=== PATIENT | female | born 1965 | race Caucasian/White ===

== ENCOUNTER → 2017-10-16 | Outpatient (CLI) | payer BC | END | disposition home or self-care (01) | LOC: C.PAPS 09:00 | PROVIDERS: ATTEND Physician Assistant | DX: Z01.419 Encounter for gynecological examination (general) (routine) without abnormal findings (principal) ==

== ENCOUNTER → 2017-11-27 | Outpatient (CLI) | payer OTHER ==
--- NOTE | 2017-11-28 15:38 | MAMMOGRAPHY REPORT ---
BILATERAL DIGITAL SCREENING MAMMOGRAM TOMOSYNTHESIS WITH CAD: 11/27/2017 CLINICAL HISTORY: Routine screening. TECHNIQUE: Breast tomosynthesis in addition to standard 2D mammography was performed. Current study was also evaluated with a Computer Aided Detection (CAD) system. COMPARISON: Comparison is made to exams dated: 05/05/2010 mammogram, 05/05/2010 ultrasound, and 0 mammogram - [facility]. BREAST COMPOSITION: There are scattered areas of fibroglandular density in both breasts. FINDINGS: There is a newly visualized cluster of microcalcifications in the 8:00 to 9:00 middle one third of the right breast, for which additional spot magnification views are recommended. A question able area of architectural distortion in the upper outer middle to posterior right breast for which a dditional spot compression tomosynthesis views and possible ultrasound are recommended. No other suspicious mass, architectural distortion or cluster of microcalcifications is seen bilatera lly. IMPRESSION: ACR BI-RADS CATEGORY 0: INCOMPLETE EVALUATION: NEED ADDITIONAL IMAGING EVALUATION The newly visualized cluster of microcalcifications in the 8:00 to 9:00 middle one third of the right breast, and questionable area of architectural distortion in the right upper outer breast need addit ional imaging evaluation. The patient will be called to schedule an appointment. Approximately 10% of breast cancers are not detected with mammography. A negative mammographic report should not delay biopsy if a clinically suggestive mass is present. Allison Baptiste M.D. ay/:11/27/2017 16:37:49 Clinical Project Coordinator: Kenn BONILLA(Marva)(M), [facility] letter sent: Addl Imaging 0 BI-RADS Code: ACR BI-RADS Category 0: Incomplete Evaluation: Need Additional Imaging Evaluation
== END | disposition home or self-care (01) ==
LOC: C.MAMM 10:23
PROVIDERS: ATTEND Obstetrics & Gynecology
DX: Z12.31 Encounter for screening mammogram for malignant neoplasm of breast (principal)

== ENCOUNTER → 2017-12-12 | Outpatient (CLI) | payer OTHER ==
--- NOTE | 2017-12-12 14:02 | MAMMOGRAPHY REPORT ---
UNILATERAL RIGHT DIGITAL DIAGNOSTIC MAMMOGRAM TOMOSYNTHESIS AND TARGETED RIGHT ULTRASOUND: 12/12/2017 CLINICAL HISTORY: Callback from screening mammogram for right breast architectural distortion and elizabeth cifications. TECHNIQUE: Breast tomosynthesis in addition to standard 2D mammography was performed. Spot magnific ation right cc and ML views and spot compression right CC and MLO tomosynthesis images were obtained. COMPARISON: Comparison is made to exams dated: 11/27/2017 mammogram, 05/05/2010 mammogram, 05/05/2010 ult rasound, and 04/27/2010 mammogram - [facility]. BREAST COMPOSITION: There are scattered areas of fibroglandular density in the right breast. FINDINGS: Spot compression views demonstrate a persistent large area of architectural distortion wit hin the right upper outer quadrant. The area is ill-defined and therefore difficult to measure but m easures at least 5.2 cm in extent. A small 5 mm group of amorphous calcifications is seen within the right upper outer quadrant within the area of architectural distortion. Spot magnification views al so demonstrate a new small 4 mm cluster of amorphous calcifications within the right lower outer quad rant (annotated as [place] #1). Targeted ultrasound was performed of the right upper outer quadrant in the region of the architectura l distortion. In the in the right 10:00 breast, there is a subtle ill-defined hypoechoic shadowing r egion, which is ill-defined and therefore difficult to measure but measures at least 3.6 x 2.5 cm. W ithin this area there is a more focal ill-defined hypoechoic shadowing region in the right 10:[address], 4 cm from the nipple, which measures 1.6 x 1.4 x 1.6 cm. These areas correspond with the architec tural distortion seen mammographically. The finding is indeterminate and ultrasound-guided core need le biopsy of the focal shadowing region in the right 10:00 breast, 4 cm from the nipple, is recommend ed for further evaluation. Findings are suspicious for malignancy although radial scars can also cau se architectural distortion. In the right breast at 9:00, 3 cm from the nipple, there is an oval anechoic circumscribed mass with a thin internal septation which measures 10 x 4 x 6 mm, consistent with a benign cyst. Targeted ult rasound was also performed of the right axillary region. There is no clear evidence of axillary noreen opathy. In the right axillary region there is a 1.7 x 0.3 cm axillary lymph node which is normal in shape and has a normal echogenic fatty hilum, however, the cortical thickness is at the upper limits of normal measuring 2.7 mm. IMPRESSION: ACR BI-RADS CATEGORY 4: SUSPICIOUS, TARGETED ULTRASOUND ACR BI-RADS CATEGORY 4: SUSPICIO US 1. Large area of architectural distortion in the right upper outer quadrant, with total extent of th e distortion measuring 5.2 cm mammographically. Ill-defined hypoechoic shadowing tissue is seen in t he right 10:00 breast on ultrasound, which is felt to correspond with the architectural distortion. Findings are suspicious and ultrasound-guided core needle biopsy is recommended for further evaluatio n. Recommend biopsy of the most focal hypoechoic shadowing region in the right 10:00 breast, 4 cm fr om the nipple. 2. Small 4 mm cluster of amorphous calcifications in the right lower outer quadrant. The calcificat ions are indeterminate and stereotactic biopsy is recommended for further evaluation. 3. No clear evidence of right axillary adenopathy. One of the lymph nodes demonstrates a cortical t hickness at the upper limits of normal and is equivocal on imaging. If pathology results are maligna nt, then consider ultrasound-guided biopsy of the axillary lymph node. A phone call was made to the physician's office to confirm faxed results were received. The patient has been verbally notified of the results. She tentatively schedule the biopsies before leaving the department. Approximately 10% of breast cancers are not detected with mammography. A negative mammographic report should not delay biopsy if a clinically suggestive mass is present. Teresa May M.D. ah/:12/12/2017 11:29:38 [employer]: Diane NOVA)(Ailin), [facility] letter sent: Abnormal 4/5 BI-RADS Code: ACR BI-RADS Category 4: Suspicious Ultrasound BI-RADS: ACR BI-RADS Category 4: Suspici ous
== END | disposition home or self-care (01) ==
LOC: C.MAMM 10:09
PROVIDERS: ATTEND Obstetrics & Gynecology
DX: R92.1 Mammographic calcification found on diagnostic imaging of breast (principal); N64.89 Other specified disorders of breast

== ENCOUNTER → 2017-12-19 | Outpatient (CLI) | payer OTHER ==
--- NOTE | 2017-12-19 13:19 | Discharge Instructions ---
Discharge Instructions Procedure Procedure Date: Dec 19, 2017. Reason for visit: Right Distortion. Discharge Discharge Date: Dec 19, 2017. Discharge Diagnosis: status post breast biopsy Instructions Activity Recommendations: Additional Limitations (see below) Return to School/Work: no limitations Recommended Home Diet: No Limitations Provider Instructions: ACTIVITY RECOMMENDATIONS: * No lifting, pushing, pulling or exercising the affected side for three days. RETURN TO SCHOOL/WORK: * You may return to work/school after the procedure, but do not perform any strenuous activities for 24 to 48 hours. MEDICATIONS: * Tylenol (two 325 mg) every four to six hours if needed for mild pain (if not allergic to Tylenol). DIET: * Resume previous diet. SPECIAL CARE INSTRUCTIONS: * Keep biopsy site dry for 24 hours. May shower after 24 hours, but do not soak (bathe) incision. * May remove Tegaderm (plastic patch) tomorrow AFTER showering. * Leave the steri-strips on for one week. Allow the steri-strips to fall off by themselves. If not off after one week, you may remove them. You may place a Bandaid crosswise over the strips, if desired. * Apply ice 10 minutes on and 10 minutes off as needed. * Wear a bra at bedtime to sleep more comfortably for 2-3 days. * Your referring physician should have the results after approximately 5 to 7 business days. * Call for unusual bleeding, fever, drainage, etc or if you have any questions call during normal business hours or after hours call Dr May, [phone]. FOLLOW UP VISIT: Follow-up with Referring Physician as scheduled. Allergies Coded Allergies: No Known Allergies (Unverified Allergy, Unknown, 10/06/03) Tessie Quispe Recommendations: Call your doctor if: * Temperature above 101 degrees * Pain not relieved by pain medicine ordered * There is increased drainage or redness from any incision * You have any unanswered questions or concerns. Your Doctors Instructions noted above were prepared by provider Teresa May. Patient Signature Section: Patient Instructions Signature Page Angie Harman Patient (or Guardian) Signature/Date: I have read and understand the instructions given to me by my caregivers. Caregiver/RN/Doctor Signature/Date: The above-named patient and/or guardian has received patient instructions on this date. + Original Patient Signature Page (only) stays with chart. Please make copy for patient.
--- NOTE | 2017-12-19 15:21 | MAMMOGRAPHY REPORT ---
ULTRASOUND GUIDED BIOPSY RIGHT BREAST: 12/19/2017 CLINICAL HISTORY: Ill-defined hypoechoic shadowing tissue in the right 10:00 breast, felt to correspo nd with mammographic architectural distortion. PATIENT CONSENT: The procedure, risks and benefits were discussed with the patient and informed writt en consent was obtained. A timeout was performed immediately prior to the procedure. PROCEDURE DESCRIPTION: With ultrasound guidance, aseptic technique, and lidocaine as the local anesth etic (1% lidocaine to anesthetize the skin and 1% lidocaine with epinephrine to anesthetize the deepe r tissues), the the ill-defined hypoechoic shadowing region in the right 10:00 breast was sampled 4 t imes with a 14-gauge Achieve biopsy needle. Immediately thereafter, with ultrasound guidance, asepti c technique, and lidocaine as the local anesthetic, a metallic localizer clip was placed at the biops y site. Direct pressure was applied to the site immediately post procedure and hemostasis was achiev ed. Postprocedure unilateral mammograms were performed to confirm clip placement. The patient genaro ated the procedure without complication. She was given wound care instructions. The specimens were s ent to pathology for analysis. Stereotactic biopsy was also recommended of calcifications seen within the right lower outer quadrant during the recent diagnostic workup, however, the patient opted not to undergo stereotactic biopsy t leena and would like to wait for the pathology results before making any further decisions. COMPARISON: Comparison is made to exams dated: 12/12/2017 ultrasound, 12/12/2017 mammogram, 11/27/2017 ma mmogram, 05/05/2010 mammogram, 05/05/2010 ultrasound, and 04/27/2010 mammogram - [facility] [place]. IMPRESSION: ULTRASOUND GUIDED BIOPSY 1. Ultrasound-guided core needle biopsy of the hypoechoic shadowing region in the right 10:00 breast , with clip placement. The patient will receive pathology results from her referring provider. 2. If pathology results are malignant, recommend preoperative bilateral breast MRI. Additionally, i f pathology results are malignant and breast conserving therapy is being considered, then stereotacti c biopsy is recommended of the small cluster of calcifications in the right lower outer quadrant. Teresa May M.D. /:12/19/2017 13:24:42 Crayon Sawyer: Diane Leonard RT(R)(M), [facility]
--- NOTE | 2017-12-19 15:25 | MAMMOGRAPHY REPORT ---
UNILATERAL RIGHT DIGITAL DIAGNOSTIC MAMMOGRAM TOMOSYNTHESIS: 12/19/2017 CLINICAL HISTORY: Status post right breast biopsy. TECHNIQUE: Breast tomosynthesis in addition to standard 2D mammography was performed. Postprocedura l right CC and ML tomosynthesis images were obtained. COMPARISON: Comparison is made to exams dated: 12/12/2017 ultrasound, 12/12/2017 mammogram, 11/27/2017 ma mmogram, 05/05/2010 mammogram, 05/05/2010 ultrasound, and 04/27/2010 mammogram - [facility] ter. BREAST COMPOSITION: There are scattered areas of fibroglandular density in the right breast. FINDINGS: A new ribbon-shaped biopsy marker clip is seen within the architectural distortion within the right upper outer quadrant, indicating good correlation between the biopsied sonographic hypoecho ic lesion and the mammographic distortion. No significant postbiopsy hematoma is seen. IMPRESSION: POST PROCEDURE IMAGING FOR MARKER PLACEMENT New biopsy marker clip status post right breast biopsy. Pathology results are pending. Approximately 10% of breast cancers are not detected with mammography. A negative mammographic report should not delay biopsy if a clinically suggestive mass is present. Teresa May M.D. ah/:12/19/2017 13:29:00 Patrol Mother: Diane BONILLA(Marva)(M), [facility] BI-RADS Code: Post Procedure Imaging For Marker Placement
== END | disposition home or self-care (01) ==
LOC: C.MAMM 12:46
PROVIDERS: ATTEND Obstetrics & Gynecology
DX: N64.9 Disorder of breast, unspecified (principal); C50.911 Malignant neoplasm of unspecified site of right female breast